=== PATIENT | female | born 1940 | race Caucasian/White ===

== ENCOUNTER 2017-03-21 17:23 | Emergency (ER) | payer OTHER ==
[2017-03-21 17:29] VITALS: BMI 36.7
[2017-03-21 17:33] VITALS: TEMP 98.2
[2017-03-21] MEDS ORDERED: Oxycodone/Acetaminophen 5/325 mg Tab PO STA (17:59)
--- NOTE | 2017-03-21 18:08 | ED PDOC ---
Arrival/HPI - General Chief Complaint: Trauma Time Seen by Provider: 03/21/17 17:54 Historian: Patient - History of Present Illness Narrative History of Present Illness (Text): 03/21/17 18:01 77yo female with Past medical history of hypertension, diabetes, hypercholestrol biba for right shoulder pain s/p trauma one hour ago. States she tripped over a carpet and tripped, landing on her right shoulder. she described sharp right shoulder pain that radiates to her hand. She denies hitting her head anywhere. The family by the bedside denies LOC, focal weakness , nausea, dizziness, any other complaint. Past Medical History - Provider Review Nursing Documentation Reviewed: Yes - Infectious Disease Hx of Infectious Diseases: None - Tetanus Immunization Tetanus Immunization: Unknown - Cardiac Hx Cardiac Disorders: Yes Hx Hypertension: Yes - Pulmonary Hx Respiratory Disorders: No - Neurological Hx Neurological Disorder: No - HEENT Hx HEENT Disorder: No - Renal Hx Renal Disorder: No - Endocrine/Metabolic Hx Diabetes Mellitus Type 2: Yes - Hematological/Oncological Hx Blood Disorders: No - Integumentary Hx Dermatological Disorder: No - Musculoskeletal/Rheumatological Hx Musculoskeletal Disorders: No - Gastrointestinal Hx Gastrointestinal Disorders: No - Genitourinary/Gynecological Hx Genitourinary Disorders: No - Psychiatric Hx Psychophysiologic Disorder: No Hx Substance Use: No - Past Surgical History Past Surgical History: No Previous - Anesthesia Hx Anesthesia Reactions: No Hx Malignant Hyperthermia: No - Suicidal Assessment Feels Threatened In Home Enviroment: No Family/Social History - Physician Review Nursing Documentation Reviewed: Yes Family/Social History: Unknown Family HX Smoking Status: Never Smoked Hx Alcohol Use: No Hx Substance Use: No Hx Substance Use Treatment: No Allergies/Home Meds Allergies/Adverse Reactions: Allergies No Known Allergies Allergy (Verified 03/21/17 17:28) Home Medications: Home Meds Medication Instructions Recorded Confirmed MetFORMIN [glucOPHAGE] 500 mg PO DAILY 03/21/17 03/21/17 Rosuvastatin Calcium [Crestor] 20 mg PO DAILY 03/21/17 03/21/17 Review of Systems - Physician Review All systems were reviewed & negative as marked: Yes - Review of Systems Constitutional: Normal Eyes: Normal ENT: Normal Respiratory: Normal Cardiovascular: Normal Gastrointestinal: Normal Genitourinary Female: Normal Musculoskeletal: Arthralgias (right shoulder pain) Skin: Normal Neurological: Normal Endocrine: Normal Hemo/Lymphatic: Normal Psychiatric: Normal Physical Exam Vital Signs Reviewed: Yes Vital Signs Temp Pulse Resp BP Pulse Ox 03/21/17 17:32 98.2 F 66 18 153/70 H 97 Temperature: Afebrile Blood Pressure: Normal Pulse: Regular Respiratory Rate: Normal Appearance: Positive for: Well-Appearing, Non-Toxic, Comfortable Pain Distress: None Mental Status: Positive for: Alert and Oriented X 3 - Systems Exam Head: Present: Atraumatic, Normocephalic Pupils: Present: PERRL Extroacular Muscles: Present: EOMI Conjunctiva: Present: Normal Mouth: Present: Moist Mucous Membranes Neck: Present: Normal Range of Motion Respiratory/Chest: Present: Clear to Auscultation, Good Air Exchange. No: Respiratory Distress, Accessory Muscle Use Cardiovascular: Present: Regular Rate and Rhythm, Normal S1, S2. No: Murmurs Abdomen: Present: Normal Bowel Sounds. No: Tenderness, Distention, Peritoneal Signs Back: Present: Normal Inspection Upper Extremity: Present: NORMAL PULSES, Tenderness (right shoulder), Neurovascularly Intact, Other (Arm in a sling). No: Cyanosis, Edema, Normal ROM (Unable to ascess secondary to pain), Swelling, Deformity Lower Extremity: Present: Normal Inspection. No: Edema Neurological: Present: GCS=15, CN II-XII Intact, Speech Normal Skin: Present: Warm, Dry, Normal Color. No: Rashes Psychiatric: Present: Alert, Oriented x 3, Normal Insight, Normal Concentration Medical Decision Making ED Course and Treatment: 03/21/17 20:27 PT in Emergency department for stated history. She was AAO x3. Neurologically intact. Right shoulder xray - No acute fracture/dislocation noted. Xray was also reviewed by Dr. Upton Pt and the family members was however advised that she will be called, if the radiologist reads the xray differently. arm was placed on a sling. She was referred to orthopedist Pt declined Head CT that was ordered to r/o any internal derangement. - RAD Interpretation Radiology Orders: 03/21/17 17:59 SHOULDER RIGHT [RAD] Stat 03/21/17 18:08 HEAD W/O CONTRAST [CT] Stat - Medication Orders Current Medication Orders: Discontinued Medications Oxycodone/Acetaminophen (Percocet 5/325 Mg Tab) 1 tab PO STAT STA Stop: 03/21/17 18:00 Last Admin: 12/19/17 18:19 Dose: 1 tab [facility] Pain Assessment Document 03/21/17 18:19 HI (Rec: 03/21/17 18:24 HI [facility] [id number]) Pain Reassessment Is this a pain reassessment? No Sleep Is patient sleeping during reassessment? No Presence of Pain Presence of Pain Yes Location Left, Right or Bilateral Right Pain Location Body Site Shoulder Disposition/Present on Arrival - Present on Arrival Any Indicators Present on Arrival: No History of DVT/PE: No History of Uncontrolled Diabetes: No Urinary Catheter: No History of Decub. Ulcer: No History Surgical Site Infection Following: None - Disposition Have Diagnosis and Disposition been Completed?: Yes Diagnosis: Shoulder sprain Disposition: HOME/ ROUTINE Disposition Time: 19:15 Patient Plan: Discharge Patient Problems: Current Active Problems Problem Status Onset Shoulder sprain Acute Condition: STABLE Discharge Instructions (ExitCare): Shoulder Sprain (ED) Additional Instructions: Follow up with your Orthopedist Return to Emergency department or any new or worsening symptoms Prescriptions: traMADol [Ultram] 50 mg PO TID #12 tab Referrals: Taylor Young APN-C [Primary Care Provider] - Follow up with primary Lisbeth Cornejo MD [Staff Provider] - Follow up with primary Forms: Fiz (Romanian)
[2017-03-22 00:01] VITALS: BP 142/71; PULSE 62; RESP 16; O2SAT 100
--- NOTE | 2017-03-22 08:20 | RAD ---
PROCEDURE: Radiographs of the Right Shoulder HISTORY: shoulder pain s/p trauma COMPARISON: No prior. FINDINGS: BONES: Normal. No fracture. JOINTS: Normal. Glenohumeral and acromioclavicular joints preserved. No osteoarthritis. SOFT TISSUES: Normal. OTHER FINDINGS: None. IMPRESSION: No acute findings related to/accounting for the clinical presentation.
== END 2017-03-21 19:40 | disposition home or self-care (01) ==
LOC: ED 17:23
DX: S43.401A Unspecified sprain of right shoulder joint, initial encounter (principal); W01.0XXA Fall on same level from slipping, tripping and stumbling without subsequent striking against object, initial encounter; Y92.89 Other specified places as the place of occurrence of the external cause

== ENCOUNTER 2018-04-13 10:15 | Outpatient (CLI) | payer OTHER | END 2018-04-13 10:16 | disposition home or self-care (01) | LOC: LAB 10:15 ==

== ENCOUNTER 2018-04-19 10:49 | Outpatient (CLI) | payer OTHER | END 2018-04-19 10:50 | disposition home or self-care (01) | LOC: LAB 10:49 ==

== ENCOUNTER 2018-05-21 09:12 | Outpatient (CLI) | payer OTHER | END 2018-05-21 09:13 | disposition home or self-care (01) | LOC: RAD 09:12 | DX: N20.0 Calculus of kidney (principal); M25.511 Pain in right shoulder; M81.0 Age-related osteoporosis without current pathological fracture ==

== ENCOUNTER 2018-06-21 11:52 | Outpatient (CLI) | payer OTHER | END 2018-06-21 11:53 | disposition home or self-care (01) | LOC: LAB 11:52 ==